=== PATIENT | female | born 1980 | race Caucasian/White ===

== ENCOUNTER 2018-06-09 13:27 | Emergency (ER) | payer OTHER ==
--- NOTE | 2018-06-09 15:29 | UC ---
Throat Pain/Nasal Tyler HPI - HPI Summary HPI Summary: 37-year-old female presents with a ten-day history of nasal congestion, nasal drainage, and sinus pressure. States symptoms started to improve over the last 2-3 days began to worsen again and she is now running some low-grade fever. Associated with some bilateral ear fullness. She has been taking Sudafed and ibuprofen some relief. Denies dizziness, vertigo, sore throat, cough, chest pain, shortness of breath, abdominal pain, nausea, or vomiting. - History of Current Complaint Chief Complaint: UCRespiratory Stated Complaint: SINUS ISSUE Time Seen by Provider: 06/09/18 14:55 Hx Obtained From: Patient Pain Intensity: 7 - Allergies/Home Medications Allergies/Adverse Reactions: Allergies Allergy/AdvReac Type Severity Reaction Status Date / Time Sulfa (Sulfonamide Allergy Hives Verified 06/09/18 13:39 Antibiotics) Home Medications: Home Medications Ibuprofen 400 mg PO 06/09/18 [History] Pseudoephedrine HCl [Sudafed 12 Hour] 1 tab 06/09/18 [History] PMH/Surg Hx/FS Hx/Imm Hx Previously Healthy: Yes - Denies significant PMH - Surgical History Surgical History: Yes Surgery Procedure, Year, and Place: 1 - Family History Known Family History: Positive: Non-Contributory - Social History Occupation: Employed Full-time Lives: With Family Alcohol Use: Weekly Substance Use Type: None Smoking Status (MU): Never Smoked Tobacco Review of Systems All Other Systems Reviewed And Are Negative: Yes Constitutional: Positive: Fever, Fatigue. Negative: Chills Eyes: Negative: Drainage, Eye Redness ENT: Positive: Ear Ache, Nasal Discharge, Sinus Congestion, Sinus Pain/ Tenderness. Negative: Sore Throat Respiratory: Negative: Shortness Of Breath, Cough Cardiovascular: Negative: Palpitations, Chest Pain Gastrointestinal: Negative: Abdominal Pain, Vomiting, Nausea Is Patient Immunocompromised?: No Physical Exam - Summary Physical Exam Summary: GENERAL APPEARANCE: Well developed, well nourished, alert and cooperative, and appears to be in no acute distress. EYES: Conjunctiva clear. No discharge. Vision is grossly intact. EARS: External auditory canals clear, hearing grossly intact. Air bubbles noted behind right TM. No erythema. Left TM opaque with good cone of light. NOSE: Nasal congestion with discharge. Maxillary sinus tenderness with percussion. THROAT: Oral cavity and pharynx normal. No inflammation, swelling, exudate, or lesions. Teeth and gingiva in good general condition. NECK: Neck supple, non-tender without lymphadenopathy. CARDIAC: Normal S1 and S2. No S3, S4 or murmurs. Rhythm is regular. There is no peripheral edema, cyanosis or pallor. Extremities are warm and well perfused. Capillary refill is less than 2 seconds. LUNGS: Clear to auscultation and percussion without rales, rhonchi, wheezing or diminished breath sounds. SKIN: Skin normal color, texture and turgor with no lesions or eruptions. Triage Information Reviewed: Yes Vital Signs: Initial Vital Signs Temp 99.2 F 06/09/18 13:35 Pulse 76 06/09/18 13:35 Resp 18 06/09/18 13:35 BP 119/57 06/09/18 13:35 Pulse Ox 100 06/09/18 13:35 Vital Signs Reviewed: Yes Throat Pain/Nasal Course/Dx - Course Course Of Treatment: 37-year-old female presents with a ten-day history of nasal congestion, nasal drainage, and sinus pressure. States symptoms started to improve over the last 2-3 days began to worsen again and she is now running some low-grade fever. Associated with some bilateral ear fullness. She has been taking Sudafed and ibuprofen some relief. Denies dizziness, vertigo, sore throat, cough, chest pain, shortness of breath, abdominal pain, nausea, or vomiting. Afebrile. Vital signs stable. Exam revealed nasal congestion with discharge, maxillary sinus tenderness, and right serous otitis. Considering the duration of her symptoms and the worsening after improvement will treat her for a bacterial sinus infection with Augmentin 875 mg twice a day 10 days, fluticasone nasal spray, saline rinses, and [id number] pseudoephedrine for congestion. She is to follow-up with primary care provider if symptoms persist. Warning symptoms were reviewed with the patient. He verbalizes understanding and agrees with plan of care. - Differential Dx/Diagnosis Differential Diagnosis/HQI/PQRI: Otitis Media, Pharyngitis, Sinusitis, Tonsillitis, URI Provider Diagnosis: Acute maxillary sinusitis Discharge - Sign-Out/Discharge Documenting (check all that apply): Patient Departure All imaging exams completed and their final reports reviewed: No Studies - Discharge Plan Condition: Stable Disposition: HOME Prescriptions: Amoxicillin/Clavulanate TAB* [Augmentin TAB 875*] 875 mg PO BID #20 tab Fluticasone NASAL SPRAY 50MCG* [Flonase NASAL SPRAY 50MCG*] 2 spray BOTH NARES DAILY #1 btl Patient Education Materials: Sinusitis (ED) Referrals: No Primary Care Phys,NOPCP [Primary Care Provider] - [facility] [place] [facility] REFERRAL [Outside] Additional Instructions: Your history and exam are consistent with a sinus infection. Considering the duration of your symptoms we will start you on an antibiotic to treat the infection. Start Augmentin 1 tab every 12 hours for 10 days. Take with food to avoid upset stomach. Be sure to complete the entire course even if feeling better. Use a saline rinse kit such as Neti Pot or NeilMed at least twice a day. Start fluticasone nasal spray 2 sprays each nostril once a day. Continue to take an over the counter decongestant such as Sudafed according to directions as needed for nasal congestion. Take acetaminophen (Tylenol) or ibuprofen (Advil, Motrin) according to directions as needed for fever or pain. Follow-up with your primary care provider in 7 days if symptoms persist. I have given you the number for the [facility]ician Referral Service if you need assistance with establishing with a provider. Seek immediate medical attention if you have a persistent fever greater than 100.5 F despite taking acetaminophen or ibuprofen, you are unable to swallow, has difficulty breathing, or have any worsening of symptoms. - Billing Disposition and Condition Condition: STABLE Disposition: Home - Attestation Statements Provider Attestation: Per institutional requirements, I have reviewed the chart, however, I was not consulted specifically or made aware of this patient by the midlevel provider. I did not personally evaluate, interact with , or disposition this patient.
== END 2018-06-09 15:45 | disposition home or self-care (01) ==
LOC: UCEAST 13:27
DX: J01.00 Acute maxillary sinusitis, unspecified (principal); Z88.2 Allergy status to sulfonamides
CPT/HCPCS: 99202; G0463